=== PATIENT | male | born 1935 | race Caucasian/White ===

== ENCOUNTER → 2016-08-01 | Day surgery (SDC) | payer MEDICARE, BC ==
[~2016-08-01] MED LIST: AMLO5TAB22 PO; BUPIVACAINE/EPINEPHRINE 0.5% PF 30 ML VIAL ONE; FERR324T4 PO; FLUT1SPR9 EACH NARE; HYDR-3533 PO; LACTATED RINGER'S 1000 ML INJ 1,000 ML ONE; LIDOCAINE 1%/EPINEPHrine 1:100,000 SOLN 20 ML VIAL ONE; LIDOCAINE 1%/EPINEPHrine 1:100,000 SOLN 30 ML VIAL ONE; MIDAZOLAM HCL 2 MG/2 ML VIAL ONE; PARO1TAB71 PO; PROP1TAB PO; PROPOFOL 200 MG/20 ML AMP IV ONE; ZOLP10TA3 PO; ceFAZolin 2 GM PREMIX 50 ML ONE
--- NOTE | 2016-08-01 08:33 | TN ---
cc: ZULEYMA RANGEL DATE OF SURGERY: 08/01/2016 PREOPERATIVE DIAGNOSIS Compression fracture of L3, acute. POSTOPERATIVE DIAGNOSIS Compression fracture of L3, acute. PROCEDURE Kyphoplasty of L3 and placement of bone cement spacer. SURGEON Zuleyma Rangel ANESTHESIA TIVA. ESTIMATED BLOOD LOSS Minimal. INDICATION This patient is an 81-year-old male status post previous kyphoplasty at L2 in January of last year. The patient did well but had some continued back pain. Studies showed evidence of an evolving compression fracture at L3 and over two weeks ago he had an MRI scan showing this to be an acute to subacute fracture in that region. Despite conservative measures, the patient continued to have back pain that is significant and debilitating. He presents for surgical treatment. DETAILS OF PROCEDURE The patient was brought to the operating room and given limited sedation. He was rolled to a prone position on a Tam frame on a radiolucent table. All pressure points were protected and the back was scrubbed with alcohol followed by Hibiclens followed by ChloraPrep and draped sterilely. A timeout was done. Antibiotics were given within a one hour time window. A single balloon approach from the left side was utilized using the Kyphon system. Local anesthesia was utilized and a small incision was made allowing placement of an awl through the pedicle from the left side through and into the vertebral body. A balloon was placed centrally but we did not have complete filling all the way over to the right side. A separate cannula was placed on the right side allowing direct access to an area on the far right side. On the back table methyl methacrylate was mixed and after approximately 11-12 minutes was injected. We had good fill with no evidence of extravasation. The cement was allowed to harden. The tubes were removed. Intraoperative x-rays were obtained. The wound was irrigated and anesthetized closed with 4-0 Vicryl followed by Dermabond. The patient was awakened and taken to the recovery room in satisfactory condition. Zuleyma Rangel MD [facility] [place] /8:15 AM /8:27 AM
== END | disposition home or self-care (01) ==
LOC: ESDC 06:05
PROVIDERS: ATTEND Orthopaedic Surgery Orthopaedic Surgery of the Spine
DX: S32.030A Wedge compression fracture of third lumbar vertebra, initial encounter for closed fracture (principal)
CPT/HCPCS: 01936; 22514; 72100; J0690; J2250; J3010; J7120

== ENCOUNTER → 2017-02-21 | Day surgery (SDC) | payer MEDICARE, BC ==
[~2017-02-21] MED LIST changes: +BUPIVACAINE/EPINEPHRINE 0.5% 50 ML VIAL INFIL ONE; -BUPIVACAINE/EPINEPHRINE 0.5% PF 30 ML VIAL ONE; +DEXAMETHASONE SOD PHOS 4 MG/ML VIAL IV ONE; +IOHEXOL 180 MG/ML 20 ML VIAL (for RAD DIAG) OTHER ONE; +KETOROLAC TROMETHAMINE 30 MG/ML (IVP) VIAL IV PUSH ONE; -LIDOCAINE 1%/EPINEPHrine 1:100,000 SOLN 20 ML VIAL ONE; -LIDOCAINE 1%/EPINEPHrine 1:100,000 SOLN 30 ML VIAL ONE; +LIDOCAINE 1.5%/EPINEPHrine 1:200,000 PF SOLN 30 ML AMP OTHER ONE
--- NOTE | 2017-02-21 17:11 | TN ---
cc: ZULEYMA RANGEL DATE OF SURGERY 02/21/17 PREOPERATIVE DIAGNOSIS Compression fracture of T12, subacute. POSTOPERATIVE DIAGNOSIS Compression fracture of T12, subacute. PROCEDURE Kyphoplasty T12 and placement of a bone cement spacer. SURGEON Nilda Rangel MD ANESTHESIA TIVA. ESTIMATED BLOOD LOSS Minimal. INDICATION This is an 81-year-old male who is almost 4 weeks now after a compression fracture at the T12 level. He has been treated conservatively including bracing and altered activities with medications. The patient is having progressive pain and kyphotic deformity developing. He now presents for kyphoplasty at that level. PROCEDURE IN DETAIL The patient was brought to the operating room and given limited sedation, rolled to prone position. All pressure points were protected. The back was scrubbed with alcohol followed by Hibiclens followed by Chloraprep and draped sterilely. Antibiotics were given within a 1 hour time window and a time-out was done. AP and lateral radiographic image was used identifying the T12 level and comparing to preoperative studies. A single balloon approach utilized left side using the Kyphon system. Local anesthesia was utilized and a small incision was made. An awl was placed down through the pedicle and into the vertebral body at an oblique angle. A 20 mm Kyphon balloon was elevated having good correction of the inferior endplate. On the back table methyl methacrylate was mixed and, after 11 minutes, was injected. We had no extravasation and what was felt to be a very good fill. The cement was allowed to harden. The tube was removed. Intraoperative x-rays were obtained. The patient's wound was irrigated, anesthetized, closed with 4-0 Vicryl followed by Dermabond. The patient was awakened, taken to recovery room in satisfactory condition. MD JENSEN Santiago/ /4:59 PM /5:03 PM
== END | disposition home or self-care (01) ==
LOC: ESDC 12:54
PROVIDERS: ATTEND Orthopaedic Surgery Orthopaedic Surgery of the Spine
DX: S22.080A Wedge compression fracture of T11-T12 vertebra, initial encounter for closed fracture (principal)
CPT/HCPCS: 01936; 22513; J0690; J1100; J1885; J2250; J3010; J7120; Q9965; 72070

== ENCOUNTER → 2017-07-27 | Outpatient (CLI) | payer MEDICARE, BC ==
[~2017-07-27] MED LIST changes: +AMLO5TAB2 PO; -BUPIVACAINE/EPINEPHRINE 0.5% 50 ML VIAL INFIL ONE; -DEXAMETHASONE SOD PHOS 4 MG/ML VIAL IV ONE; +DULO1CAP3 PO; +FERR325T18 PO; +FLUT1SPR5 EACH NARE; +HYDR-3288 PO; +HYDR-3516 PO; -IOHEXOL 180 MG/ML 20 ML VIAL (for RAD DIAG) OTHER ONE; -KETOROLAC TROMETHAMINE 30 MG/ML (IVP) VIAL IV PUSH ONE; -LACTATED RINGER'S 1000 ML INJ 1,000 ML ONE; -LIDOCAINE 1.5%/EPINEPHrine 1:200,000 PF SOLN 30 ML AMP OTHER ONE; -MIDAZOLAM HCL 2 MG/2 ML VIAL ONE; +OXYC1TAB35 PO; +PAXI10TA8 PO; -PROPOFOL 200 MG/20 ML AMP IV ONE; +SAW450CA2 PO; +TAMS0.4C4 PO; +VITA10002 PO; -ceFAZolin 2 GM PREMIX 50 ML ONE
[2017-07-27 12:47] LABS: AUTOMATED NEUTROPHIL # 3.3 TH/MM3 (1.8-7.7); BASOPHIL # 0.1 TH/MM3 (0-0.2); BASOPHIL % 1.1 % (0.0-2.0); EOSINOPHIL # 0.3 TH/MM3 (0-0.4); EOSINOPHIL % 5.2 % (0.0-4.0); HEMATOCRIT 35.2 % (39.0-51.0); LYMPH % 26.2 % (9.0-44.0); LYMPHOCYTE # 1.6 TH/MM3 (1.0-4.8); MEAN CELL VOLUME 96.7 FL (80.0-100.0); MEAN CORPUSCULAR HEMOGLOBIN 32.9 PG (27.0-34.0); MEAN PLATELET VOLUME 6.8 FL (7.0-11.0); MONO % 12.5 % (0.0-8.0); MONOCYTE # 0.8 TH/MM3 (0-0.9); PLATELET COUNT 361 TH/MM3 (150-450); RED BLOOD COUNT 3.64 MIL/MM3 (4.50-5.90); RED CELL DISTRIBUTION WIDTH 14.5 % (11.6-17.2)
[2017-07-27 13:09] LABS: BICARBONATE 29.8 MEQ/L (21.0-32.0); CALCIUM 9.7 MG/DL (8.5-10.1); CREATININE 1.72 MG/DL (0.60-1.30)
--- NOTE | 2017-07-27 19:42 | EKG ---
Date Performed: 07/27/2017 Time Performed: 09:57:28 PTAGE: 82 years EKG: Sinus rhythm NORMAL ECG NO PREVIOUS TRACING DOCTOR: Rocío Lyons Interpretating Date/Time 07/27/2017 19:39:44
== END ==
LOC: CPRE 09:32
PROVIDERS: ATTEND Orthopaedic Surgery Orthopaedic Surgery of the Spine
DX: Z01.810 Encounter for preprocedural cardiovascular examination (principal); Z01.812 Encounter for preprocedural laboratory examination; M48.062 Spinal stenosis, lumbar region with neurogenic claudication
CPT/HCPCS: 36415; 80048; 85025; 93005

== ENCOUNTER → 2017-08-01 | Day surgery (SDC) | payer MEDICARE, BC ==
[~2017-08-01] VITALS: Ht 182.9 cm; Wt 80.3 kg
[~2017-08-01] MED LIST changes: +ACETAMINOPHEN 1000 MG/100 ML 100 ML IV ONE; +ACETAMINOPHEN/HYDROcodone 325 MG/7.5 MG TAB PO PRN; -AMLO5TAB22 PO; +BETAMETHASONE SOD PHOS/ACETATE SUSP 30 MG/5 ML VIAL ONE; +BUPIVACAINE/EPINEPHRINE 0.25% 50 ML VIAL ONE; +CHLORHEXIDINE GLUCONATE 2 % 1 PACK (2 CLOTHS) TOPICAL PRN; +CHLORHEXIDINE GLUCONATE 4% SOLN 120 ML BTL TOPICAL SCH; +DEXAMETHASONE SOD PHOS 4 MG/ML VIAL IV ONE; +DO NOT ADM ANY ANTICOAGULANT DRUGS PRN; +ESMOLOL HCL 100 MG/10 ML VIAL IV ONE; -FERR324T4 PO; -FERR325T18 PO; -FLUT1SPR9 EACH NARE; +GELATIN 12 MM/7 MM FOAM ONE; +GENTAMICIN SULFATE 80 MG/2 ML VIAL ONE; +GLYCOPYRROLATE 1 MG/5 ML SYRINGE IV PUSH ONE; -HYDR-3516 PO; -HYDR-3533 PO; +INSULIN HUMAN REGULAR 1,000 UNITS/10 ML VIAL SQ PRN; +KETOROLAC TROMETHAMINE 30 MG/ML (IVP) VIAL IV PUSH ONE; +LACTATED RINGER'S 1000 ML INJ 1,000 ML IV ONE; +LACTATED RINGER'S 1000 ML IV PRN; +LIDOCAINE HCL 1% PF 5 ML SYRINGE OTHER ONE; +METOPROLOL TARTRATE 25 MG TAB PO PRN; +MORPHINE SULFATE 2 MG/ML INJ IV PRN; +NEOSTIGMINE 5 MG/5 ML SYRINGE IV PUSH ONE; +ONDANSETRON HCL 4 MG/2 ML VIAL IV ONE; -PARO1TAB71 PO; -PAXI10TA8 PO; +PHENYLEPH/NS 1000 MCG/10 ML SYR IV ONE; +POVIDONE IODINE 5% (ANTISEPSIS KIT) 4 APPLICATIONS EACH NARE PRN; -PROP1TAB PO; +PROPOFOL 200 MG/20 ML AMP IV ONE; +ROCURONIUM INJ 50 MG/5 ML SYRINGE IV PUSH ONE; +SODIUM CHLORID 0.9% 500 ML IV PRN; +ceFAZolin 2 GM PREMIX 50 ML IV SCH; +ePHEDrine/NS 25 MG/5 ML SYRINGE IV ONE
--- NOTE | 2017-08-01 13:30 | PD.OP ---
cc: Enmanuel Castelan. Operative Report Date of Surgery: Aug 01, 2017 Preoperative Diagnosis: Lumbar spinal stenosis L2-3 and L3 4. Left greater than right lumbosacral radiculopathy Postoperative Diagnosis: Same Procedure: Bilateral lumbar laminectomy from the left L2, L3 with bilateral lateral recess decompression. Bilateral lumbar laminectomy L3 4, from the left with bilateral lateral recess decompression. Use of dilation port and microscope Anesthesia: Gen. Surgeon: Enmanuel Castelan Production Welding Supervisor(s): TANIA Juárez Operation and Findings: EBL: 100 cc INDICATION: Patient is a 82-year-old male with significant back and leg pain and weakness. He's had previous kyphoplasty is at multiple levels including T12 , L1 through L3. He has studies showing evidence of high-grade spinal stenosis greater on the left on the right and worse at L3 4 followed by L2-3. Despite conservative care, he continues to be painful and symptomatically. He now presents for surgical treatment. NOTE: Shruti Juárez PA-C was present for the entire surgical procedure as my entry level administrative assistant. In my medical opinion her skill and care was necessary for the proper management of this patient. PROCEDURE: The patient was brought to the operating room and anesthetized in the supine position. The patient was rolled to a prone position on a Tam frame on a Faisal table. All pressure points were protected in the back was scrubbed with alcohol followed by Hibiclens followed by ChloraPrep and draped sterilely. A timeout was done and antibiotics were given. AP and lateral radiographic images were used to identify the proper levels and perform skin markings. We started from the left side at the L2-3 level. A paramedian incision was made and an off-midline fascial incision was made. A dilating system was placed down to the interlaminar space and held provisionally to the side of the table. The microscope was brought into the field. A high-speed bur under the microscope was used to perform a bilateral laminectomy from that side. A lateral recess decompression bilaterally was accomplished using straight and angled Kerrison punches. A partial medial facetectomy was accomplished. The crossing and exiting nerve roots were completely decompressed. We moved to the L3 4 level. A separate fascial incision was made. A dilating system was placed down to the interlaminar space and held provisionally to the side of the table. The microscope was brought back into the field. A high- speed bur under the microscope was used to perform a bilateral laminectomy from that side. A lateral recess decompression bilaterally was accomplished using straight and angled Kerrison punches. A partial medial facetectomy was accomplished. The crossing and exiting nerve roots were completely decompressed. The wound was irrigated copiously. Hemostasis was controlled. The deep fascia was approximated with interrupted 0 Vicryl suture subcutaneous suture with 2-0 Vicryl suture and skin with running intradermal 3-0 Vicryl followed by Dermabond. A field block with local anesthesia was utilized. A sterile dressing was applied. The sponge count and needle counts and instrument counts were all correct. The patient tolerated the procedure well as taken to the recovery room in satisfactory condition. FINDINGS: Was evidence of a high-grade stenosis bilaterally at L3 4 and worse on the left than on the right at L2-3. The decompression appeared be very satisfactory. There was no complication that was appreciated. He shouldn't appeared to tolerate the procedure well Enmanuel Castelan MD Aug 01, 2017 13:30
--- NOTE | 2017-08-01 14:04 | RADRPT ---
EXAM DATE/TIME: 08/01/2017 11:56 [facility] COMPARISON: No previous studies available for comparison. INDICATIONS : Laminectomy L2-3 L3-4 level localization. MEDICAL HISTORY : None. SURGICAL HISTORY : None. ENCOUNTER: Initial ACUITY: 1 day PAIN SCORE: Non-responsive. LOCATION: L-spine CONCLUSION: Lateral fluoroscopic view demonstrates temporary probe along the posterior elements at L3-4 level. Ky phoplasty cement within L2 and L3 vertebral bodies. Dougie Huff MD on August 01, 2017 at 13:59 Board Certified Radiologist. This report was verified electronically.
[2017-08-01 14:53] VITALS: BP 152/81; PULSE 87; RESP 18; TEMP 97.6; O2SAT 94
== END | disposition home or self-care (01) ==
LOC: HSDC 07:10
PROVIDERS: ATTEND Orthopaedic Surgery Orthopaedic Surgery of the Spine
DX: M48.061 Spinal stenosis, lumbar region without neurogenic claudication (principal); M54.16 Radiculopathy, lumbar region; M79.669 Pain in unspecified lower leg; I10 Essential (primary) hypertension; M19.90 Unspecified osteoarthritis, unspecified site
CPT/HCPCS: 00630; 63047; 63048; 72020; 76000; J0131; J0690; J1100; J1580; J1885; J2370; J2405; J2710; J3010; J7120; J0702